=== PATIENT | female | born 1975 | race Caucasian/White ===

== ENCOUNTER 2016-08-31 21:23 | Emergency (ER) | payer BC ==
[2016-08-31 21:30] VITALS: BP 116/81; BMI 29.8
--- NOTE | 2016-08-31 23:16 | DR.GENAD ---
HPI - PCP Primary Care Physician: DENISE - Complaint/Symptoms Chief Complaint:: MIGRAINE/NAUSEA Self Treatment fo Chief Complaint: IMATREX SHOT TWICE YESTERDAY AND PERCOCET TODAY AT 1300 - Source History Provided: Patient - Mode of Arrival Mode of Arrival: Ambulatory - Timing Onset of Chief Complaint: 08/30/16 PMH - PMH Past Medical History: Yes Past Medical History: Migraines, Hypertension, Hypothyroidism Past Surgical History: Yes Surgical History: , Hysterectomy, Tonsillectomy - Family History History of Family Medical Conditions: Yes Family Medical History: Diabetes Mellitus, Cancer, [place], Hypertension - Social History Does patient currently use any type of tobacco product: No Have you used tobacco products in the last 12 months: No Type of Tobacco Use: None Does any household member use tobacco: No Alcohol Use: None Do you use any recreational Drugs:: No Lives With: Family Lives Where: Home - infectious screening In the last 2 months have you had wt loss of >10#?: NO Have you had fever, night sweats or hemotysis?: No Have you traveled outside the country in the last 6 months?: No Isolation: Standard ROS - Review of Systems Constitutional: No Symptoms Reported Eyes: No Symptoms Reported ENTM: No Symptoms Reported Respiratoy: No Symptoms Reported Cardiovascular: No Symptoms Reported Gastrointestinal/Abdominal: No Symptoms Reported Genitourinary: No Symptoms Reported Neurological: No Symptoms Reported Musculoskeletal: No Symptoms Reported Integumentary: No Symptoms Reported Hematologic/Lymphatic: No Symptoms Reported Endocrine: No Symptoms Reported Psychiatric: No Symptoms Reported All Other Systems: Reviewed and Negative PE - Vital Signs Vitals: Temperature 98.3 F Pulse Rate 75 Respiratory Rate 16 Blood Pressure [Left Arm] 167/95 Blood Pressure 116/81 O2 Sat by Pulse Oximetry 100 - General Limitations: No Limitations General Appearance: Alert, In No Apparent Distress - Head Head Exam: Normal Inspection, Atraumatic - Eyes Eye exam: Normal Appearance, PERRL, EOMI - ENT ENT Exam: Normal Exam External Ear Exam: Normal External Inspection TM/Canal Exam: Bilateral Normal Nose Exam: Normal Nose Exam Mouth Exam: Normal Inspection Throat Exam: Normal Inspection - Neck Neck Exam: Normal Inspection - Chest Chest Inspection: Normal Inspection, Symmetric Chest Wall Rise - Respiratory Respiratory Exam: Accessory Muscle Use Respiratory Exam: Bilateral Clear to Auscultation - Cardiovascular Cardiovascular Exam: Regular Rate, Normal Rhythm - Abdominal Exam Abdominal Exam: Normal Inspection, Normal Bowel Sounds Abdominal Tenderness: negative: RUQ, RLQ, LUQ, LLQ, Epigastrium, Suprapubic, Diffuse, Mild, Moderate, Severe, Other - Extremities Extremities Exam: Normal Inspection, Full ROM - Back Back Exam: Normal Inspection, Full ROM - Neurologic Neurological Exam: Alert, Oriented X3, CN II-XII Intact - Psychiatric Psychiatric Exam: Normal Affect, Normal Mood, Depressed - Skin Skin Exam: Warm, Dry, Intact Course - Reevaluation 1st: Improved - Diagnosis Discharge Problem: Migraine headache Qualifiers: Migraine type: without aura Status migrainosus presence: without status migrainosus Intractability: not intractable Qualified Code(s): G43.009 - Migraine without aura, not intractable, without status migrainosus - Follow ups/Referrals Follow ups/Referrals: JEREMIAS WALKER [Primary Care Provider] - 3 days - Instructions
[2016-08-31] MEDS ORDERED: DECADRON INJ IV ONE (23:19)
[2016-08-31] MEDS ORDERED: NS 500 ML IV 500 ML IV ONE ×2 (23:19→23:30)
[2016-08-31] MEDS ORDERED: TORADOL 30 MG VIAL IVP ONE (23:21)
[2016-08-31] MEDS ORDERED: PHENERGAN INJ 25 MG IV ONE (23:21)
[2016-08-31] MEDS ORDERED: PHENERGAN INJ 25 MG ONE (23:29)
[2016-08-31] MEDS ORDERED: DECADRON INJ ONE (23:29)
[2016-08-31] MEDS ORDERED: TORADOL 30 MG VIAL ONE (23:29)
== END 2016-09-01 00:30 | disposition home or self-care (01) ==
LOC: ER 21:33
DX: G43.009 Migraine without aura, not intractable, without status migrainosus (principal)
CPT/HCPCS: 96365; 96374; 96375; 99283; A4222; J1100; J1885; J2550